=== PATIENT | male | born 1940 | race Caucasian/White ===

== ENCOUNTER 2017-04-02 10:55 | Emergency (ER) | payer OTHER, MEDICARE ==
[2017-04-02 11:25] VITALS: BMI 24.7
--- NOTE | 2017-04-02 12:18 | PDOC ---
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 He states that he was given the contrast for his MRI when he started feeling dizzy, flushed and then passed out. He returned to baseline quickly. He states that he was strapped to a chair , so there was no fall or head trauma. He states that he was getting an MRI for neck pain after a fall in November. He states he has had decreased range of motion since then. He has had no other follow up. He denies chest pain, shortness of breath, nausea, vomiting, fevers and chills. Patient reports that he has had many similar episodes in the past, all when in some sort of contact with the medical system. <David Mcdaniel - Last Filed: 04/02/17 19:25> - General Chief Complaint: Allergic Reaction Stated Complaint: ALLERGIC REACTION Time Seen by Provider: 04/02/17 11:05 Past History <uD Torres - Last Filed: 04/02/17 16:38> - Past Medical History Anemia: No Asthma: No Cancer: Yes (Hairy Cell Leukemia) Cardiac Disorders: No CVA: No COPD: No Diabetes: Yes (Pre-Diabetes) - Immunization History Immunization Up to Date: Yes - Suicide/Smoking/Psychosocial Hx Smoking History: Unknown if ever smoked Have you smoked in the past 12 months: No Information on smoking cessation initiated: No Hx Alcohol Use: No Drug/Substance Use Hx: No Substance Use Type: None <David Mcdaniel - Last Filed: 04/02/17 19:25> - Past Medical History Allergies/Adverse Reactions: Allergies Allergy/AdvReac Type Severity Reaction Status Date / Time Iodinated Contrast- Oral and AdvReac Verified 04/02/17 11:18 IV Dye Home Medications: Ambulatory Orders Hydrochlorothiazide 12.5 mg PO DAILY 04/02/17 Metformin HCl 500 mg PO BID 04/02/17 Metoprolol Succinate [Toprol Xl] 25 mg PO DAILY 04/02/17 Review of Systems - Review of Systems Comments:: 04/02/17 14:17 GENERAL/CONSTITUTIONAL: No fever or chills. HEAD, EYES, EARS, NOSE AND THROAT: No change in vision. No sore throat. CARDIOVASCULAR: No chest pain or shortness of breath RESPIRATORY: No cough, wheezing, or hemoptysis. GASTROINTESTINAL: No nausea, vomiting, diarrhea or constipation. GENITOURINARY: No dysuria, frequency, or change in urination. MUSCULOSKELETAL: No joint or muscle swelling or pain. Positive for neck pain. SKIN: No rash NEUROLOGIC: No headache, vertigo, loss of consciousness, or change in strength/ sensation. ENDOCRINE: No increased thirst. No abnormal weight change HEMATOLOGIC/LYMPHATIC: No history of blood clots. <David Mcdaniel - Last Filed: 04/02/17 19:25> *Physical Exam - Vital Signs Last Vital Signs Temp Pulse Resp BP Pulse Ox 97.3 F L 60 16 142/63 100 04/02/17 11:36 04/02/17 11:36 04/02/17 11:36 04/02/17 11:36 04/02/17 11:36 <Du Torres - Last Filed: 04/02/17 16:38> - Vital Signs Last Vital Signs Temp Pulse Resp BP Pulse Ox 97.3 F L 60 16 142/63 100 04/02/17 11:36 04/02/17 11:36 04/02/17 11:36 04/02/17 11:36 04/02/17 11:36 - Physical Exam Comments: 04/02/17 14:19 GENERAL: Awake, alert, and fully oriented, in no acute distress, neck held in flexion HEAD: No signs of trauma, normocephalic, atraumatic EYES: PERRLA, EOMI, sclera anicteric, conjunctiva clear ENT: Auricles normal inspection, hearing grossly normal, nares patent, oropharynx clear without exudates. Moist mucosa NECK: Limited extension of neck, supple, no lymphadenopathy, JVD, or masses LUNGS: No distress, speaks full sentences, clear to auscultation bilaterally HEART: Regular rate and rhythm, normal S1 and S2, no murmurs, rubs or gallops, peripheral pulses normal and equal bilaterally. ABDOMEN: Soft, nontender, normoactive bowel sounds. No guarding, no rebound. No masses EXTREMITIES: Normal inspection, Normal range of motion, no edema. No clubbing or cyanosis. NEUROLOGICAL: Cranial nerves II through XII grossly intact. Normal speech, no focal sensorimotor deficits SKIN: Warm, Dry, normal turgor, no rashes or lesions noted. <David Mcdaniel - Last Filed: 04/02/17 19:25> ED Treatment Course - LABORATORY CBC & Chemistry Diagram: 04/02/17 12:25 04/02/17 12:25 - ADDITIONAL ORDERS Additional order review: Laboratory Results 04/02/17 04/02/17 04/02/17 12:25 12:25 12:25 PT with INR 11.50 INR 1.02 Sodium 143 Potassium 3.7 Chloride 107 Carbon Dioxide 26 Anion Gap 10 BUN 27 H Creatinine 0.8 Creat Clearance w eGFR > 60 Random Glucose 139 H Calcium 8.5 Magnesium 1.9 Total Bilirubin 0.4 AST 17 ALT 26 Alkaline Phosphatase 51 Creatine Kinase 90 Troponin I < 0.02 B-Natriuretic Peptide 86.56 Total Protein 6.2 L Albumin 3.3 L 04/02/17 12:25 RBC 4.69 MCV 98.5 H MCHC 32.6 RDW 13.8 MPV 10.8 Neutrophils % 85.5 H Lymphocytes % 7.1 L Monocytes % 6.2 Eosinophils % 0.6 Basophils % 0.6 <Du Torres - Last Filed: 04/02/17 16:38> - LABORATORY CBC & Chemistry Diagram: 04/02/17 12:25 04/02/17 12:25 - RADIOLOGY Radiology Studies Ordered: Category Date Time Status CERVICAL SPINE CT W/O CONTR [CT] Stat CT Scan 04/02/17 11:[address] WITHOUT CONTRAST [CT] Stat CT Scan 04/02/17 11:43 Ordered CHEST PA & LAT [RAD] Stat Radiology 04/02/17 11:23 Ordered <David Mcdaniel - Last Filed: 04/02/17 19:25> Medical Decision Making - Medical Decision Making 04/02/17 14:22 77M with history of htn, bordeline dm, hairy cell leukemia/cll here today with syncope. History is not concerning for allergic reaction. No hives, no shortness of breath, no wheezing. Vital signs stable and normal. Will evaluate with cardiac labs, cxr, ekg. Dr Schafer called for patient after being notified of syncope during MRI, stated that the patient's leukemia has been very stable. The neck MRI was for the patient's fall in late november. EKG shows normal sinus rhythm. No ST elevations/depressions, no t wave abnormalities. Normal GA and QTC intervals. 04/02/17 15:34 Laboratory Tests 04/02/17 04/02/17 04/02/17 12:25 12:25 12:25 WBC 9.1 Hgb 15.1 Hct 46.2 Plt Count 140 INR 1.02 BUN 27 H Creatinine 0.8 Troponin I < 0.02 CBC normal. Kidney function normal. Trop negative. CMP unremarkable, coags normal. CT head shows no acute intracranial pathology. CT cervical spine pending. Patient is refusing c-collar. 04/02/17 19:24 CT cervical spine shows no acute pathologies. Discharged. <David Mcdaniel - Last Filed: 04/02/17 19:25> *DC/Admit/Observation/Transfer <Du Torres - Last Filed: 04/02/17 16:38> <David Mcdaniel - Last Filed: 04/02/17 19:25> Diagnosis at time of Disposition: Syncope - Discharge Dispostion Disposition: HOME - Referrals Referrals: Ck Hayward MD [Primary Care Provider] - Mane Gonzalez MD [Staff Physician] - - Patient Instructions Printed Discharge Instructions: DI for Syncope in Adults (Fainting) Additional Instructions: You must follow up with your technical expert within 1 week for further work up of your fainting episodes. You may need a Holter monitor. If you do not have a technical expert, call the number provided to make an appointment. Please avoid operating any heavy machinery or driving until you are cleared to do so by your primary doctor, as you are at risk for having additional fainting episodes. If you experience any chest pain, shortness of breath, additional fainting episodes, or any other concerning symptoms, return to the ER immediately.
[2017-04-02 12:40] LABS: BASO % 0.6 % (0-2.0); EOS % 0.6 % (0-4.5); MCH 32.1 pg (25.7-33.7); MCHC 32.6 g/dl (32.0-35.9); MEAN CELL VOLUME 98.5 fl (80-96); MEAN PLT VOLUME 10.8 fl (7.5-11.1); NEUT % 85.5 % (42.8-82.8); PLATELET COUNT 140 K/MM3 (134-434); RDW 13.8 % (11.9-15.9); WHITE BLOOD COUNT 9.1 K/mm3 (4.0-10.0)
--- NOTE | 2017-04-02 12:42 | EKG ---
Test Reason : Blood Pressure : / mmHG Vent. Rate : 084 BPM Atrial Rate : 084 BPM P-R Int : 144 ms QRS Dur : 084 ms QT Int : 390 ms P-R-T Axes : 069 -10 008 degrees QTc Int : 460 ms POOR DATA QUALITY, INTERPRETATION MAY BE ADVERSELY AFFECTED SINUS RHYTHM WITH PREMATURE SUPRAVENTRICULAR COMPLEXES INFERIOR INFARCT , AGE UNDETERMINED ANTERIOR INFARCT , AGE UNDETERMINED ABNORMAL ECG NO PREVIOUS ECGS AVAILABLE Confirmed by DEZ HADDAD, ARASELI ([id number]) on 04/02/2017 12:42:29 PM Referred By: Confirmed By:ARASELI GARCES MD
[2017-04-02 12:58] LABS: INR 1.02 (0.82-1.09); PROTHROMBIN TIME (PATIENT) 11.5 SEC (9.98-11.88)
[2017-04-02 13:09] LABS: ALBUMIN 3.3 g/dl (3.4-5.0); ANION GAP 10 (8-16); BILIRUBIN,TOTAL 0.4 mg/dL (0.2-1.0); CALCIUM 8.5 mg/dL (8.5-10.1); CO2 26 mmol/L (21-32); CREATININE 0.8 mg/dL (0.7-1.3); GLUCOSE,RANDOM 139 mg/dL (74-106); MAGNESIUM 1.9 mg/dL (1.8-2.4); SGOT/AST 17 U/L (15-37); SGPT/ALT 26 U/L (12-78); TOT PROT 6.2 g/dl (6.4-8.2)
[2017-04-02 13:13] LABS: ALK PHOS 51 U/L (45-117); CPK 90 IU/L (39-308); TROPONIN I < 0.02 ng/ml (0.00-0.05)
--- NOTE | 2017-04-02 15:00 | PDOC ---
Attending Attestation - Resident Resident Name: David Mcdaniel - ED Attending Attestation I have performed the following: I have examined & evaluated the patient, The case was reviewed & discussed with the resident, I agree w/resident's findings & plan, Exceptions are as noted - HPI HPI: 04/02/17 14:54 77M with h/o HTN, boderline DM (H1AC 6.2% on metformin), hairy cell leukemia, presenting to ER with syncopal episode. Pt was having outpt MRI done with IV contrast when he reports that he felt very lightheaded. He subsequently lost consciousness. Pt was caught by groundwater monitoring technician and did not hit floor. He recalls waking up in the seated position. Denies ever having CP/SOB/palpitations. He returned to baseline soon after. Pt reports multiple similar episodes in the past. States that he has had about "50 episodes of vasovagal" syncope, all the context of being in a medical setting. He attributes it to "severe white coat syndrome". Pt currently denies any complaints. - Physicial Exam PE: 04/02/17 15:00 "GENERAL: Awake, alert, and fully oriented, in no acute distress HEAD: No signs of trauma EYES: PERRLA, EOMI, sclera anicteric, conjunctiva clear ENT: Auricles normal inspection, hearing grossly normal, nares patent, oropharynx clear without exudates. Moist mucosa NECK: Nontender, no stepoffs, Normal ROM, supple, no lymphadenopathy, JVD, or masses LUNGS: Breath sounds equal, clear to auscultation bilaterally. No wheezes, and no crackles HEART: Regular rate and rhythm, normal S1 and S2, no murmurs, rubs or gallops ABDOMEN: Soft, nontender, normoactive bowel sounds. No guarding, no rebound. No masses EXTREMITIES: Normal range of motion, no edema. No clubbing or cyanosis. No cords, erythema, or tenderness NEUROLOGICAL: Cranial nerves II through XII intact. 5/5 strength and sensation in all extremities, Normal speech, normal gait SKIN: Warm, Dry, normal turgor, no rashes or lesions noted. " - Medical Decision Making 04/02/17 15:00 77 M with syncopal episode. Likely vasovagal in the setting of getting IV contrast. Pt with no clinical s/s of allergic reaction. Exam and vitals now normal. - Labs, trop - Monitor in ER - Reassess 04/02/17 19:00 Pt re-evaluated and continues to appear well with no complaints. No additional syncopal episodes while in ER. Labs and imaging unremarkable. 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 Clinically stable for DC. I discussed the physical exam findings, ancillary test results and final diagnoses with the patient. I answered all of the patient's questions. The patient was satisfied with the care received and felt comfortable with the discharge plan and treatment plan. The patient agrees to follow up with the primary care physician within 24-72 hours.
[2017-04-02 17:02] VITALS: BP 132/49; PULSE 88; TEMP 97.4
== END 2017-04-02 17:02 | disposition home or self-care (01) ==
LOC: JER 10:55
DX: R55 Syncope and collapse (principal); C91.40 Hairy cell leukemia not having achieved remission; I10 Essential (primary) hypertension; E11.9 Type 2 diabetes mellitus without complications; Z79.84 Long term (current) use of oral hypoglycemic drugs
CPT/HCPCS: 36415; 70450-TC; 71020-TC; 72125-TC; 80053; 82550; 83735; 83880; 84484; 85025; 85610; 93005; 93010; 99285-25

== ENCOUNTER → 2017-08-17 | Day surgery (SDC) | payer OTHER, MEDICARE ==
--- NOTE | 2017-08-18 18:05 | PATH ---
Cytology Non-Gynecological Report Patient Name: DEE GOMEZ [facility]. Rec. #: [id number] /Age/Gender: 1940 (Age: 77) / M Account: [id number] Location: RADIOLOGY Taken: 08/17/2017 Received: 08/17/2017 Reported: 08/18/2017 Physicians: Aubree Amaya M.D. Specimen(s) Received LEFT THYROID FNA Clinical History Left thyroid Nodule, 2.49 x 2.19 x 2.00 cm Final Diagnosis THYROID, LEFT, FINE NEEDLE ASPIRATION: SATISFACTORY FOR EVALUATION. BETHESDA III: ATYPIA OF UNDETERMINED SIGNIFICANCE. FEW CLUSTERS OF ATYPICAL FOLLICULAR CELLS WITH MILD NUCLEAR ENLARGEMENT, NUCLEAR CLEARING, NUCLEAR GROOVES, AND FOCAL CROWDING IN A BACKGROUND OF THICK COLLOID AND SCATTERED MACROPHAGES. Comment: Suggest clinical/radiologic correlation and repeat sampling after an appropriate interval (3-6 months) with material for molecular studies (Thyroseq), as clinically warranted. Electronically Signed Debra Rivas M.D. Gross Description Received are eight direct smears, four of which are air-dried and Diff-Quik stained, and four of which are alcohol fixed and Pap stained. Also received is 20 ml of bloody formalin from which one cellblock is prepared.
== END | disposition home or self-care (01) ==
LOC: JRADIR 09:05
PROVIDERS: ATTEND Internal Medicine Endocrinology, Diabetes & Metabolism
PROC: 0G9G3ZX Drainage of Left Thyroid Gland Lobe, Percutaneous Approach, Diagnostic (ICD-10-PCS; principal; 2017-08-17)
DX: E04.1 Nontoxic single thyroid nodule (principal)
CPT/HCPCS: 10022; 36415; 60100; 76942-TC; 84439; 84443; 84481; 86376; 86800; 88173; 88305-TC

== ENCOUNTER 2020-07-02 13:14 | Emergency (ER) | payer OTHER, MEDICARE ==
[2020-07-02 13:21] VITALS: BP 157/84; PULSE 91; TEMP 97.6; BMI 25.8
[2020-07-02 14:40] LABS: EPITHELIAL CELLS RARE /hpf
[2020-07-02 15:03] LABS: ALBUMIN 4.1 g/dl (3.4-5.0); BILIRUBIN,TOTAL 0.9 mg/dl (0.2-1); CALCIUM 9.3 mg/dl (8.5-10); CREATININE 0.9 mg/dl (0.55-1.3); TOT PROT 7.2 g/dl (6.4-8.2)
[2020-07-02 15:29] LABS: BASO % 0.7 % (0-2.0); HEMATOCRIT 45.1 % (35.4-49); HEMOGLOBIN 15.7 GM/dl (11.7-16.9); LYMPH % 10.7 % (8-40); MCH 33.9 pg (25.7-33.7); MCHC 34.8 g/dl (32.0-35.9); MEAN CELL VOLUME 97.4 fl (80-96); MEAN PLT VOLUME 11.5 fl (7.5-11.1); NEUT % 77.6 % (42.8-82.8); PLATELET COUNT 152 K/MM3 (134-434); RBC 4.63 M/mm3 (4.00-5.60); RDW 13.1 % (11.9-15.9); WHITE BLOOD COUNT 9.1 K/mm3 (4.0-10.8)
[2020-07-02 15:36] LABS: ADD RBC MORPHOLOGY YES
[2020-07-02 19:17] LABS: PLATELET ESTIMATE ADEQUATE
== END 2020-07-02 16:49 | disposition home or self-care (01) ==
LOC: FER 13:14 → SUPCPDRO 13:14 → FER 16:49
DX: N32.3 Diverticulum of bladder (principal); R31.0 Gross hematuria
CPT/HCPCS: 36415; 74176-TC; 80053; 81003; 81015; 85025; 87086; 99284-25